=== PATIENT | male | born 1940 | race Asian ===

== ENCOUNTER 2025-06-15 02:47 | Emergency (ER) | payer MEDICARE ==
[~2025-06-15] VITALS: Ht 162.6 cm; Wt 63.0 kg
[2025-06-15 03:12] VITALS: O2SAT 100
[2025-06-15 04:28] VITALS: TEMP 36.5
[2025-06-15] MEDS: LISINOPRIL 20MG TABLET PO ONE (05:38)
[2025-06-15] MEDS: HYDROCHLOROTHIAZIDE 12.5MG CAPSULE PO ONE (05:38)
[2025-06-15] MEDS: DIGOXIN 125MCG TABLET PO ONE (05:44)
[2025-06-15] MEDS: AMLODIPINE 5MG TABLET PO ONE (05:44)
[2025-06-15] MEDS: FINASTERIDE 5MG TABLET PO SCH (05:54)
[2025-06-15 05:59] VITALS: BP 166/79; PULSE 72; RESP 12; O2SAT 99
[2025-06-15] MEDS: TAMSULOSIN HCL 0.4MG SR CAPSULE PO ONE (05:59)
[2025-06-15] MEDS: LISINOPRIL 20MG TABLET PO SCH (06:00)
== END 2025-06-15 06:41 | disposition left against medical advice (07) ==
LOC: ER 02:47 → CMPBEDREQ 07:06
DX: R29.810 Facial weakness (principal); I48.91 Unspecified atrial fibrillation; I10 Essential (primary) hypertension; G93.9 Disorder of brain, unspecified; M19.90 Unspecified osteoarthritis, unspecified site; Z90.49 Acquired absence of other specified parts of digestive tract; Z86.73 Personal history of transient ischemic attack (TIA), and cerebral infarction without residual deficits; Z53.29 Procedure and treatment not carried out because of patient's decision for other reasons; Z88.5 Allergy status to narcotic agent
CPT/HCPCS: 71045; 93005; 99284